=== PATIENT | female | born 1940 | race Caucasian/White ===

== ENCOUNTER 2024-07-20 13:42 | Inpatient (IN) | payer MEDICARE, OTHER ==
[~2024-07-20] VITALS: Ht 152.4 cm; Wt 46.7 kg
[2024-07-20] MEDS: IV NORMAL SALINE 1000 ML BAG IV ONE (14:49)
[2024-07-20 14:59] LABS: BASOPHILS % (AUTO) 0.7 % (0.0-2.0); EOSINOPHILS # (AUTO) 0.1 K/uL (0.0-0.7); EOSINOPHILS % (AUTO) 0.9 % (0.0-7.0); HEMATOCRIT 37.6 % (31.2-41.9); HEMOGLOBIN 12.3 g/dL (10.9-14.3); LYMPHOCYTES # (AUTO) 1.7 K/uL (0.8-4.8); MEAN CORPUSCULAR HEMOGLOBIN 29.8 uug (24.7-32.8); MEAN CORPUSCULAR HGB CONC 33 g/dL (32.3-35.6); MEAN CORPUSCULAR VOLUME 90.7 fL (75.5-95.3); MONOCYTES # (AUTO) 0.4 K/uL (0.1-1.30); MONOCYTES % (AUTO) 6.9 % (0.0-11.0); NEUTROPHILS # (AUTO) 3.7 K/uL (1.8-8.9); NEUTROPHILS % (AUTO) 63.5 % (38.5-71.5); PLATELET COUNT (AUTO) 212 K/uL (179-408); RED BLOOD CELL COUNT(AUTO) 4.14 MIL/uL (3.63-4.92); RED CELL DISTRIBUTION WIDTH 15.6 % (12.3-17.7); WHITE BLOOD COUNT (AUTO) 5.9 K/uL (3.8-11.8)
[2024-07-20 15:05] LABS: DIFFERENTIAL COMMENT 1
[2024-07-20 15:08] LABS: CARBON DIOXIDE 28 mmol/L (21-32); CHLORIDE 106 mmol/L (98-107); CREATININE 0.5 mg/dL (0.6-1.3); GLUCOSE 99 mg/dL (74-106); POTASSIUM 2.9 mmol/L (3.5-5.1); SODIUM SERUM 140 mmol/L (136-145); UREA NITROGEN, BLOOD 15 mg/dL (7-18)
[2024-07-20 15:12] LABS: AMMONIA < 10 umol/L (11-32)
[2024-07-20 15:21] LABS: THYROID STIMULATING HORMONE 3.467 mIU/mL (0.358-3.740)
[2024-07-20 15:25] LABS: ALANINE AMINOTRANSFERASE 16 U/L (14-59); ALBUMIN 2.7 g/dL (3.4-5.0); ALKALINE PHOSPHATASE 45 U/L (50-136); ASPARTATE AMINOTRANSFERASE 10 U/L (15-37); BILIRUBIN,DIRECT 0.2 mg/dL (0.0-0.2); BILIRUBIN,TOTAL 0.7 mg/dL (0.2-1.0); TOTAL PROTEIN, SERUM 5.7 g/dL (6.4-8.2)
[2024-07-20] MEDS ORDERED: CHOLECALCIFEROL 1,000 UNIT TABLET ONE (15:26)
[2024-07-20] MEDS: CHOLECALCIFEROL 1,000 UNIT TABLET PO SCH (15:27)
[2024-07-20 15:29] LABS: *BILIRUBIN,URIN NEGATIVE (NEGATIVE); *COLOR,URINE DARK YELLOW (YELLOW); *KETONES,URINE 1+ (NEGATIVE); *PROTEIN,URINE TRACE (NEGATIVE); LEUKOCYTE ESTERASE ,URINE 1+ (NEGATIVE); NITRITE, URINE NEGATIVE (NEGATIVE); UGLUCOSE NEGATIVE (NEGATIVE)
[2024-07-20 15:30] LABS: *BLOOD, URINE TRACE (NEGATIVE)
[2024-07-20 15:32] LABS: *CLARITY,URINE HAZY (CLEAR)
[2024-07-20 15:40] LABS: MAGNESIUM 2.3 mg/dL (1.8-2.4)
[2024-07-20 15:41] LABS: BACTERIA,URINE MANY /HPF (NONE SEEN); RBC,URINE 0-3 /HPF (0-3)
[2024-07-20 15:42] LABS: SQUAMOUS EPITHELIAL CELL,UR FEW /HPF (NONE SEEN)
[2024-07-20] MEDS ORDERED: POTASSIUM BICARBONATE/CIT AC 25 MEQ TABLET.EFF ONE (16:01)
[2024-07-20] MEDS ORDERED: CYANOCOBALAMIN 1000 MCG/ML VIAL ONE (16:01)
[2024-07-20] MEDS: POTASSIUM BICARBONATE/CIT AC 25 MEQ TABLET.EFF PO ONE (16:06)
[2024-07-20] MEDS: CYANOCOBALAMIN 1000 MCG/ML VIAL IM ONE (16:06)
[2024-07-20] MEDS ORDERED: ONDANSETRON 4 MG/2 ML VIAL IV PRN (16:30)
[2024-07-20] MEDS ORDERED: MAGNESIUM HYDROXIDE 30 ML LIQUID UDC PO PRN (16:30)
[2024-07-20 19:37] VITALS: BP 136/63
[2024-07-20] MEDS: IV D5/ 0.9% NACL 1,000 ML IV PRN (19:38)
[2024-07-20 20:10] VITALS: BP 136/58; TEMP 97.4; O2SAT 94
[2024-07-20] MEDS: CEFTRIAXONE 1 G in IV DEXTROSE 5% 50 ML IV SCH (20:52)
[2024-07-20] MEDS: TEMAZEPAM 15 MG CAPSULE PO PRN (20:53)
[2024-07-20 21:12] LABS: CALCIUM 8.5 mg/dL (8.5-10.1); CARBON DIOXIDE 29 mmol/L (21-32); CHLORIDE 104 mmol/L (98-107); CREATININE 0.5 mg/dL (0.6-1.3); GLUCOSE 127 mg/dL (74-106); POTASSIUM 3.1 mmol/L (3.5-5.1); SODIUM SERUM 138 mmol/L (136-145); UREA NITROGEN, BLOOD 14 mg/dL (7-18)
[2024-07-20] MEDS: OLANZAPINE 10 MG VIAL IM ONE (22:20)
[2024-07-20] MEDS ORDERED: OXYB10TA30 PO (23:43)
[2024-07-20] MEDS ORDERED: MULT-596 PO (23:43)
[2024-07-20] MEDS ORDERED: LEVO25TA9 PO (23:43)
[2024-07-20] MEDS ORDERED: DIGO125T5 PO (23:43)
[2024-07-20] MEDS ORDERED: ACET-2605 PO (23:43)
[2024-07-20] MEDS ORDERED: DOCU100C36 PO (23:43)
[2024-07-20] MEDS ORDERED: CIPR-262 PO (23:43)
[2024-07-20] MEDS ORDERED: CARB30DR18 EACHEYE (23:43)
[2024-07-20] MEDS ORDERED: BIMA2.5D5 EACHEYE (23:43)
[2024-07-20] MEDS ORDERED: AMLO-212 PO (23:43)
[2024-07-20] MEDS ORDERED: OLAN5TAB70 PO (23:43)
[2024-07-20] MEDS ORDERED: HYDR-3980 PO (23:43)
[2024-07-20] MEDS ORDERED: TRAZ-182 PO (23:43)
[2024-07-20] MEDS ORDERED: LORA10TA7 PO (23:43)
[2024-07-20] MEDS ORDERED: ESCI-9 PO (23:43)
[2024-07-20] MEDS ORDERED: GABA300C PO (23:43)
[2024-07-20] MEDS ORDERED: FAMO10TA41 PO (23:43)
[2024-07-20] MEDS ORDERED: PROP20TA7 PO (23:43)
[2024-07-20] MEDS ORDERED: IBUP-1957 PO (23:43)
[2024-07-20] MEDS ORDERED: BUPR150T10 PO (23:43)
[2024-07-21 04:30] VITALS: BP 137/65; TEMP 97.4; O2SAT 95
[2024-07-21] MEDS: PANTOPRAZOLE SODIUM 40 MG TABLET.DR PO SCH (06:09)
[2024-07-21 07:39] LABS: CALCIUM 8.5 mg/dL (8.5-10.1); CARBON DIOXIDE 29 mmol/L (21-32); CHLORIDE 105 mmol/L (98-107); CHOLESTEROL 144 mg/dL (<200); CREATININE 0.6 mg/dL (0.6-1.3); GLUCOSE 99 mg/dL (74-106); HDL CHOLESTEROL 52 mg/dL (40-60); MAGNESIUM 2.2 mg/dL (1.8-2.4); PHOSPHOROUS 3.1 mg/dL (2.5-4.9); SODIUM SERUM 140 mmol/L (136-145); TRIGLYCERIDES 78 MG/DL (30-150); UREA NITROGEN, BLOOD 8 mg/dL (7-18)
[2024-07-21 07:40] LABS: THYROID STIMULATING HORMONE 5.896 mIU/mL (0.358-3.740)
[2024-07-21 08:04] LABS: BASOPHILS % (AUTO) 0.5 % (0.0-2.0); DIFFERENTIAL COMMENT 0; EOSINOPHILS # (AUTO) 0.2 K/uL (0.0-0.7); EOSINOPHILS % (AUTO) 2.9 % (0.0-7.0); HEMATOCRIT 38.1 % (31.2-41.9); HEMOGLOBIN 12.7 g/dL (10.9-14.3); LYMPHOCYTES # (AUTO) 1.7 K/uL (0.8-4.8); LYMPHOCYTES % (AUTO) 24.9 % (20.5-51.5); MEAN CORPUSCULAR HEMOGLOBIN 30.3 uug (24.7-32.8); MEAN CORPUSCULAR HGB CONC 33 g/dL (32.3-35.6); MONOCYTES # (AUTO) 0.4 K/uL (0.1-1.30); MONOCYTES % (AUTO) 5.2 % (0.0-11.0); NEUTROPHILS # (AUTO) 4.5 K/uL (1.8-8.9); NEUTROPHILS % (AUTO) 66.5 % (38.5-71.5); PLATELET COUNT (AUTO) 198 K/uL (179-408); RED BLOOD CELL COUNT(AUTO) 4.18 MIL/uL (3.63-4.92); RED CELL DISTRIBUTION WIDTH 15.9 % (12.3-17.7); WHITE BLOOD COUNT (AUTO) 6.7 K/uL (3.8-11.8)
[2024-07-21] MEDS ORDERED: CLON1TAB12 PO (09:18)
[2024-07-21] MEDS: POTASSIUM CHLORIDE 10 MEQ TAB.PRT.SR PO SCH (09:43)
[2024-07-21] MEDS ORDERED: BUPR-96 PO (10:44)
[2024-07-21] MEDS ORDERED: HOME MED MISCELLANEOUS XX SCH ×2 (10:45)
[2024-07-21] MEDS ORDERED: buPROPion SR 150 MG TABLET.SA PO SCH (10:45)
[2024-07-21] MEDS: DIGOXIN 125 MCG TABLET PO SCH (11:04)
[2024-07-21] MEDS: buPROPion XL 150 MG TAB.SR.24H PO SCH (11:04)
[2024-07-21] MEDS: LEVOTHYROXINE SODIUM 25 MCG TABLET PO SCH (11:05)
[2024-07-21] MEDS: PROPRANOLOL HCL 20 MG TABLET PO SCH (11:05)
[2024-07-21] MEDS: LORATADINE 10 MG TABLET PO SCH (11:05)
[2024-07-21] MEDS: AMLODIPINE 5 MG TABLET PO SCH (11:05)
[2024-07-21] MEDS: OXYBUTYNIN XL 5 MG TABSR PO SCH (11:13)
[2024-07-21 11:50] VITALS: BP 138/65; TEMP 97.6; O2SAT 95
[2024-07-21] MEDS: GABAPENTIN 300 MG CAPSULE PO SCH (14:29)
[2024-07-21] MEDS: POLYVINYL ALCOHOL OPHT DROPS 15 ML BOTTLE EACHEYE SCH (14:29)
[2024-07-21 15:50] VITALS: BP 135/62; TEMP 97.9; O2SAT 97
[2024-07-21] MEDS: DOCUSATE SODIUM 100 MG CAPSULE PO SCH (16:55)
[2024-07-21] MEDS ORDERED: BIMATOPROST 0.01% OPHT DROP 2.5 ML BOTTLE EACHEYE SCH (18:00)
[2024-07-21] MEDS: LATANOPROST OPHT DROP 2.5 ML BOTTLE EACHEYE SCH (18:05)
[2024-07-21 19:00] VITALS: BP 133/58; TEMP 98.2; O2SAT 94
[2024-07-21] MEDS: TRAZODONE 50 MG TABLET PO SCH (20:10)
[2024-07-22 06:00] VITALS: BP 127/61; TEMP 97.8; O2SAT 96
[2024-07-22] MEDS: HYDROCODONE/APAP 5-325MG TABLET PO PRN (06:26)
[2024-07-22 06:37] LABS: CALCIUM 8.6 mg/dL (8.5-10.1); CARBON DIOXIDE 29 mmol/L (21-32); CHLORIDE 107 mmol/L (98-107); CREATININE 0.5 mg/dL (0.6-1.3); GLUCOSE 91 mg/dL (74-106); POTASSIUM 3.9 mmol/L (3.5-5.1); SODIUM SERUM 141 mmol/L (136-145); UREA NITROGEN, BLOOD 7 mg/dL (7-18)
[2024-07-22] MEDS: ESCITALOPRAM OXALATE 10 MG TABLET PO SCH (08:50)
[2024-07-22] MEDS: MULTIVITAMINS,THERAPEUTIC TABLET PO SCH (08:50)
[2024-07-22] MEDS ORDERED: ENOXAPARIN SODIUM 30 MG/0.3 ML DISP.SYRIN SUBCUT SCH (09:15)
[2024-07-22] MEDS: ENOXAPARIN SODIUM 40 MG/0.4 ML DISP.SYRIN SQ SCH (11:07)
[2024-07-22 12:00] VITALS: BP 112/62; TEMP 98.2; O2SAT 97
[2024-07-22 16:06] VITALS: BP 125/69; TEMP 98; O2SAT 93
[2024-07-22 20:00] VITALS: BP 115/69; TEMP 97.9; O2SAT 95
[2024-07-22] MEDS: MUPIROCIN 2% OINT 22 GM TUBE NS SCH (20:54)
[2024-07-23] MEDS: ACETAMINOPHEN 325 MG TABLET PO PRN (01:55)
[2024-07-23 06:18] VITALS: BP 100/53; TEMP 98.2; O2SAT 95
[2024-07-23 08:00] VITALS: BP 113/61; TEMP 98.8; O2SAT 97
[2024-07-23] MEDS: REMEDY ESSENTIAL ZINC PASTE 113 GM TP PRN (08:41)
[2024-07-23 11:30] VITALS: BP 111/62; TEMP 97.6; O2SAT 97
== END 2024-07-23 15:10 | DRG 690 ==
LOC: ER 13:42 → UNDOADMIN 17:09 → MEDSURG3 17:09
PROVIDERS: ADMIT Nurse Practitioner Acute Care; ATTEND Nurse Practitioner Acute Care
DX: N39.0 Urinary tract infection, site not specified (principal); E44.0 Moderate protein-calorie malnutrition; F02.83 Dementia in other diseases classified elsewhere, unspecified severity, with mood disturbance; R64 Cachexia; B96.89 Other specified bacterial agents as the cause of diseases classified elsewhere; E86.0 Dehydration; Z68.20 Body mass index [BMI] 20.0-20.9, adult; N32.81 Overactive bladder; E03.9 Hypothyroidism, unspecified; Z22.322 Carrier or suspected carrier of Methicillin resistant Staphylococcus aureus; M62.84 Sarcopenia; E87.6 Hypokalemia; E88.09 Other disorders of plasma-protein metabolism, not elsewhere classified; R26.2 Difficulty in walking, not elsewhere classified; G30.9 Alzheimer's disease, unspecified; F32.A Depression, unspecified; R79.89 Other specified abnormal findings of blood chemistry; E83.51 Hypocalcemia
CPT/HCPCS: 36415; 71045; 83605; 83735; 84100; 84443; 84484; 85025; A4663; C1758; G0378; J0696; J1650; J3420; J7040; J7042